=== PATIENT | male | born 1980 | race Caucasian/White ===

== ENCOUNTER 2017-06-11 18:23 | Inpatient (IN) | payer MEDICAID, OTHER ==
[2017-06-11] MEDS ORDERED: Sodium Chloride 0.9% 10 ML Syringe FLUSH PRN (18:43)
[2017-06-11] MEDS ORDERED: Pantoprazole 40 MG Vial IVPUSH ONE (18:51)
[2017-06-11] MEDS ORDERED: Ondansetron 4 MG/2 ML SDV IVPUSH ONE (18:51)
[2017-06-11] MEDS ORDERED: Sodium Chloride 0.9% 80 ML IV ONE (19:01)
[2017-06-11] MEDS ORDERED: Iopamidol 612 MG/ML 100 ML Bottle IV PRN (19:01)
[2017-06-11] MEDS: Sodium Chloride 0.9% 1,000 ML IV SCH (19:04)
[2017-06-11] MEDS: Sodium Chloride 0.9% 10 ML Syringe FLUSH PRN ×2 (19:06→19:25)
--- NOTE | 2017-06-11 19:27 | EDM.PDOC ---
ED HPI GENERAL MEDICAL PROBLEM - General Chief Complaint: Lower Extremity Injury/Pain Stated Complaint: FELL FROM ROOF Time Seen by Provider: 06/11/17 18:26 Source of Information: Reports: Patient, Family History Limitations: Reports: Intoxication - History of Present Illness INITIAL COMMENTS - FREE TEXT/NARRATIVE: Hudson is a 36 year old male under the influence of ETOH presenting to the ER after a fall from roof at 9 feet while shingling. He reports he landed on his feet then struck the deck with his left rib area. He denies LOC, the fall was not witnessed. He complains of left foot/ankle pain , unable to bear weight, left rib/LUQ pain. Onset: Today Onset Date: 06/11/17 Onset Time: 18:00 Duration: Minutes: Location: Reports: Chest, Abdomen, Lower Extremity, Left Quality: Reports: Ache, Throbbing Improves with: Reports: None Worsens with: Reports: Movement - Related Data Allergies Allergy/AdvReac Type Severity Reaction Status Date / Time amoxicillin Allergy Cannot Verified 06/11/17 18:34 Remember Home Meds: Home Meds NK [No Known Home Meds] 06/11/17 [History] Past Medical History - Past Health History Medical/Surgical History: Denies Medical/Surgical History Social & Family History - Tobacco Use Smoking Status *Q: Current Every Day Smoker Years of Tobacco use: 18 Packs/Tins Daily: 1 - Alcohol Use Days Per Week of Alcohol Use: 4 Number of Drinks Per Day: 10 Total Drinks Per Week: 40 - Recreational Drug Use Recreational Drug Use: No Review of Systems - Review of Systems Review Of Systems: See Below Constitutional: Denies: Chills, Fever, Weakness Eyes: Reports: No Symptoms Ears: Reports: No Symptoms Nose: Reports: No Symptoms Mouth/Throat: Reports: No Symptoms Respiratory: Denies: Shortness of Breath, Wheezing, Cough, Sputum Cardiovascular: Denies: Chest Pain, Edema, Lightheadedness, Palpitations GI/Abdominal: Reports: Abdominal Pain Genitourinary: Reports: No Symptoms Musculoskeletal: Reports: Joint Pain, Other (left rib, LUQ, left ankle/foot pain ) Skin: Reports: Bruising, Other (edema to left ankle, abrasion to left ribs. ) Neurological: Reports: Other (ETOH use, 3 beers). Denies: Headache, Syncope, Weakness Psychiatric: Reports: No Symptoms, Confusion ED EXAM, GENERAL - Physical Exam Exam: See Below Free Text/Narrative:: Hudson is an alert, oriented 36 year old male who fell 9 feet from a roof onto bilateral feet striking deck rail with left ribs. He denies SOB, difficulty breathing, LOC, headache, numbness, tingling or change in sensation to extremities. Exam Limited By: Intoxication General Appearance: Alert, Mild Distress Eye Exam: Bilateral Eye: EOMI, PERRL Ears: Normal External Exam, Normal Canal, Hearing Grossly Normal, Normal TMs Ear Exam: Bilateral Ear: Auricle Normal, Canal Normal, TM normal Nose: Normal Inspection, Normal Mucosa, No Blood Throat/Mouth: Normal Inspection, Normal Lips, Normal Teeth, Normal Oropharynx, Normal Voice, No Airway Compromise Head: Atraumatic, Normocephalic Neck: Normal Inspection, Supple, Non-Tender, Full Range of Motion. No: Lymphadenopathy (R), Lymphadenopathy (L), Tender Lateral, Tender Midline Respiratory/Chest: No Respiratory Distress, Lungs Clear, Normal Breath Sounds, No Accessory Muscle Use, Other (Tenderness to left rib cage. ) Cardiovascular: Normal Peripheral Pulses, Regular Rate, Rhythm, No Edema, No Murmur Peripheral Pulses: 2+: Radial (L), Radial (R), Dorsalis Pedis (L), Dorsalis Pedis (R) GI/Abdominal: Normal Bowel Sounds, Soft, No Distention, No Mass, Other ( Tenderness with guarding to LUQ) (Male) Exam: No Hernia, Normal Inspection, Other (No blood at the meatus). No: Scrotal Swelling Rectal (Males) Exam: Normal Exam, Normal Rectal Tone, Prostate Normal, Other ( No kapil blood) Back Exam: Normal Inspection, Full Range of Motion. No: CVA Tenderness (R), CVA Tenderness (L) Extremities: Other (Right leg has normal range of motion, is non-tender, no edema. Left ankle is edematous, no obvious dislocation, ecchymosis to lateral and medial sides, decreased range of motion. Full senstaion to all toes. ) Neurological: Alert, Oriented, CN II-XII Intact, Other (ETOH on board) Psychiatric: Other (angry at times, ETOH on board) Skin Exam: Warm, Dry, Ecchymosis, Other (Edema to left ankle. Abrasions to left rib area, LUQ. ) ED TRAUMA EXTREMITY PROCEDURES - Splinting Left Lower Extremity Splint Site: left lower extremity posterior splint Pre-Procedure NV Status: Normal Post-Procedure NV Status: Normal Splint Material: Fiberglass Splint Design: Posterior Applied & Form Fitted By: Provider Provider Post-Splint Application NV Check: NV Status Normal, Good Position Complications: No Course - Vital Signs Last Recorded V/S: Last Vital Signs Temp 35.9 C 06/11/17 18:45 Pulse 102 H 06/11/17 20:01 Resp 16 06/11/17 20:01 BP 135/87 06/11/17 20:01 Pulse Ox 96 06/11/17 20:01 - Orders/Labs/Meds Orders: Active Orders 24 hr Category Date Time Status Ankle Min 3V Lt [CR] Stat Exams 06/11/17 19:11 Taken Chest Abdomen Pelvis w Cont [CT] Stat Exams 06/11/17 18:45 Taken Foot Comp Min 3V Lt [CR] Stat Exams 06/11/17 19:11 Taken URINALYSIS W/MICROSCOPIC [UA W/MICROSCOPIC] [URIN] Stat Lab 06/11/17 18:48 Uncollected Sodium Chloride 0.9% [Normal Saline] 1,000 ml Med 06/11/17 19:00 Active IV ASDIRECTED Sodium Chloride 0.9% [Saline Flush] Med 06/11/17 18:43 Active 10 ml FLUSH ASDIRECTED PRN Sodium Chloride 0.9% [Saline Flush] Med 06/11/17 19:01 Active 10 ml FLUSH ONETIME PRN Saline Lock Insert [OM.PC] Routine Oth 06/11/17 18:43 Ordered Medication Orders Sodium Chloride (Normal Saline) 1,000 mls @ 150 mls/hr IV ASDIRECTED KIMBERLY Last Admin: 06/11/17 19:04 Dose: 150 mls/hr Sodium Chloride (Saline Flush) 10 ml FLUSH ASDIRECTED PRN PRN Reason: Keep Vein Open Sodium Chloride (Saline Flush) 10 ml FLUSH ONETIME PRN PRN Reason: PER RADIOLOGY PROTOCOL Last Admin: 06/11/17 19:25 Dose: 10 ml Admin: 06/11/17 19:06 Dose: 10 ml Labs: Laboratory Tests 06/11/17 06/11/17 06/11/17 Range/Units 19:00 19:00 19:00 WBC 9.0 (4.5-11.0) K/uL RBC 4.92 (4.30-5.90) M/uL Hgb 16.0 H (12.0-15.0) g/dL Hct 45.3 (40.0-54.0) % MCV 92 (80-98) fL MCH 33 H (27-31) pg MCHC 35 (32-36) % Plt Count 251 (150-400) K/uL Neut % (Auto) 45 (36-66) % Lymph % (Auto) 47 H (24-44) % [place] % (Auto) 7 H (2-6) % Eos % (Auto) 0 L (2-4) % Baso % (Auto) 1 (0-1) % PT 10.5 (9.5-12.0) sec INR 0.98 (0.80-1.20) APTT 21.9 L (27.0-36.0) sec Sodium 141 (140-148) mmol/L Potassium 3.0 L (3.6-5.2) mmol/L Chloride 103 (100-108) mmol/L Carbon Dioxide 26 (21-32) mmol/L Anion Gap 15.0 H (5.0-14.0) mmol/L BUN 14 (7-18) mg/dL Creatinine 1.0 (0.8-1.3) mg/dL Est Cr Clr Drug Dosing 115.41 mL/min Estimated GFR (MDRD) > 60 (>60) Glucose 111 H (74-106) mg/dL Calcium 7.2 L (8.5-10.1) mg/dL Total Bilirubin 0.4 (0.2-1.0) mg/dL AST 67 H (15-37) U/L ALT 68 (12-78) U/L Alkaline Phosphatase 103 (46-116) U/L Total Protein 8.0 (6.4-8.2) g/dL Albumin 3.9 (3.4-5.0) g/dL Globulin 4.1 H (2.3-3.5) g/dL Albumin/Globulin Ratio 1.0 L (1.2-2.2) Salicylates (2.0-20.0) mg/dL Ethyl Alcohol mg/dL 06/11/17 06/11/17 Range/Units 19:00 19:00 WBC (4.5-11.0) K/uL RBC (4.30-5.90) M/uL Hgb (12.0-15.0) g/dL Hct (40.0-54.0) % MCV (80-98) fL MCH (27-31) pg MCHC (32-36) % Plt Count (150-400) K/uL Neut % (Auto) (36-66) % Lymph % (Auto) (24-44) % [place] % (Auto) (2-6) % Eos % (Auto) (2-4) % Baso % (Auto) (0-1) % PT (9.5-12.0) sec INR (0.80-1.20) APTT (27.0-36.0) sec Sodium (140-148) mmol/L Potassium (3.6-5.2) mmol/L Chloride (100-108) mmol/L Carbon Dioxide (21-32) mmol/L Anion Gap (5.0-14.0) mmol/L BUN (7-18) mg/dL Creatinine (0.8-1.3) mg/dL Est Cr Clr Drug Dosing mL/min Estimated GFR (MDRD) (>60) Glucose (74-106) mg/dL Calcium (8.5-10.1) mg/dL Total Bilirubin (0.2-1.0) mg/dL AST (15-37) U/L ALT (12-78) U/L Alkaline Phosphatase (46-116) U/L Total Protein (6.4-8.2) g/dL Albumin (3.4-5.0) g/dL Globulin (2.3-3.5) g/dL Albumin/Globulin Ratio (1.2-2.2) Salicylates 4.6 (2.0-20.0) mg/dL Ethyl Alcohol 237 mg/dL Meds: Medications Generic Name Dose Route Start Last Admin Trade Name Freq PRN Reason Stop Dose Admin Sodium Chloride 1,000 mls @ 150 mls/hr 06/11/17 19:00 06/11/17 19:04 Normal Saline IV 150 mls/hr ASDIRECTED KIMBERLY Administration Sodium Chloride 10 ml 06/11/17 18:43 Saline Flush FLUSH ASDIRECTED PRN Keep Vein Open Sodium Chloride 10 ml 06/11/17 19:01 06/11/17 19:25 Saline Flush FLUSH 10 ml ONETIME PRN Administration PER RADIOLOGY PROTOCOL Discontinued Medications Generic Name Dose Route Start Last Admin Trade Name Doris PRN Reason Stop Dose Admin Hydromorphone HCl 0.5 mg 06/11/17 21:07 06/11/17 21:34 Dilaudid IVPUSH 06/11/17 21:08 0.5 mg ONETIME ONE Administration Sodium Chloride 80 mls @ 3 mls/sec 06/11/17 19:01 06/11/17 19:25 Normal Saline IV 06/11/17 19:02 3 mls/sec ONETIME ONE Administration Iopamidol 100 ml 06/11/17 19:01 06/11/17 19:25 Isovue-300 (61%) IV 06/11/17 19:02 100 ml . DIRECTED PRN Administration RADIOLOGY EXAM Ondansetron HCl 4 mg 06/11/17 18:51 06/11/17 19:04 Zofran IVPUSH 06/11/17 18:52 4 mg ONETIME ONE Administration Pantoprazole Sodium 40 mg 06/11/17 18:51 06/11/17 19:05 Protonix Iv IVPUSH 06/11/17 18:52 40 mg ONETIME ONE Administration - Radiology Interpretation CT Results Date: 06/11/17 (CT report of chest, abdomen, pelvis with contrast completed. Findings: all organs unremarkable. Noted acute nondisplaced fractures of the left anterior lateral 5th through 9th ribs. ) - Re-Assessments/Exams Free Text/Narrative Re-Assessment/Exam: 06/11/17 [address] Pooz present in room, case discussed and orders reviewed with Dr. Pozo. He is in agreement with plan. GCS 15 06/11/17 19:00 Patient refuses head, C-spine, thoracic and lumbar spine films. Clarification, education provided on significance of fall from 9 feet and landing on feet with risk for compression fractures or other internal injuries due to distracting left ankle injury and ETOH on board. Patient refused CT scans mentioned three times, Chastity RN witnessed refusals. Officer notified of patient refusal. GCS 15 06/11/17 19:45 Ankle/foot x-rays reviewed with patient. Wet read shows left talus 15% displaced fracture with calcaneous fracture. Patient reports his pain is tolerable when laying still, CMS intact. GCS 15 06/11/17 19:52 Dr. Geraldine Watts notified of left foot injuries/fractures. Advised to place posterior splint, follow up with podiatry for fracture care. 06/11/17 21:19 Dr. Benji Watts notified of patient status, admission orders obtained. Patient to be admitted as inpatient. Departure - Departure Time of Disposition: 21:00 Disposition: Admitted As Inpatient 66 Condition: Fair Clinical Impression: Left rib fracture, Calcaneal fracture, Fracture, talus closed, Elevated ETOH level - Discharge Information - My Orders Last 24 Hours: My Active Orders 06/11/17 18:43 Sodium Chloride 0.9% [Saline Flush] 10 ml FLUSH ASDIRECTED PRN Saline Lock Insert [OM.PC] Routine 06/11/17 18:45 Chest Abdomen Pelvis w Cont [CT] Stat 06/11/17 18:48 URINALYSIS W/MICROSCOPIC [UA W/MICROSCOPIC] [URIN] Stat 06/11/17 19:00 Sodium Chloride 0.9% [Normal Saline] 1,000 ml IV ASDIRECTED 06/11/17 19:01 Sodium Chloride 0.9% [Saline Flush] 10 ml FLUSH ONETIME PRN 06/11/17 19:11 Ankle Min 3V Lt [CR] Stat Foot Comp Min 3V Lt [CR] Stat - Assessment/Plan Last 24 Hours: My Active Orders 06/11/17 18:43 Sodium Chloride 0.9% [Saline Flush] 10 ml FLUSH ASDIRECTED PRN Saline Lock Insert [OM.PC] Routine 06/11/17 18:45 Chest Abdomen Pelvis w Cont [CT] Stat 06/11/17 18:48 URINALYSIS W/MICROSCOPIC [UA W/MICROSCOPIC] [URIN] Stat 06/11/17 19:00 Sodium Chloride 0.9% [Normal Saline] 1,000 ml IV ASDIRECTED 06/11/17 19:01 Sodium Chloride 0.9% [Saline Flush] 10 ml FLUSH ONETIME PRN 06/11/17 19:11 Ankle Min 3V Lt [CR] Stat Foot Comp Min 3V Lt [CR] Stat
[2017-06-11] MEDS ORDERED: HYDROmorphone 0.5 MG/0.5 ML Syringe IVPUSH ONE (21:07)
[2017-06-11] MEDS ORDERED: Naloxone 0.4 MG/ML SDV IVPUSH PRN (22:14)
[2017-06-11] MEDS ORDERED: HYDROmorphone/Normal Saline 15 MG/30 ML PCA IV PRN ×2 (22:14→22:36)
[2017-06-11] MEDS ORDERED: LORazepam 2 MG/ML MDV IVPUSH PRN (22:17)
[2017-06-11] MEDS ORDERED: Ondansetron 4 MG/2 ML SDV IVPUSH PRN (22:20)
[2017-06-11] MEDS ORDERED: Acetaminophen 325 MG Tab PO PRN (22:21)
[2017-06-11] MEDS ORDERED: Magnesium Hydroxide 400 MG/5 ML Susp 30 ML Cup PO PRN (22:22)
[2017-06-11] MEDS ORDERED: Bisacodyl 10 MG Supp RECTAL PRN (22:23)
[2017-06-11] MEDS ORDERED: Docusate Sodium 100 MG Cap PO PRN (22:23)
[2017-06-11] MEDS ORDERED: Aluminum Hydroxide/Magnesium Hydroxide/Simethicone Susp 30 ML Cup PO PRN (22:24)
[2017-06-11] MEDS ORDERED: Calcium Carbonate 500 MG Tab.Chew PO PRN (22:25)
[2017-06-11] MEDS ORDERED: Dextrose 5%-Lactated Ringers 1,000 ML IV SCH (22:30)
[2017-06-11] MEDS ORDERED: Naloxone 0.4 MG/ML SDV IV PRN (22:36)
[2017-06-11] MEDS ORDERED: fentaNYL 25 MCG/HR Transdermal Patch TRDERM SCH (23:00)
[2017-06-12] MEDS ORDERED: fentaNYL 12 MCG/HR Transdermal Patch TRDERM SCH (01:00)
[2017-06-12] MEDS: Sodium Chloride 0.9% 1,000 ML IV SCH (02:50)
[2017-06-12] MEDS ORDERED: fentaNYL 25 MCG/HR Transdermal Patch TRDERM SCH (09:00)
[2017-06-12] MEDS: Docusate Sodium 100 MG Cap PO SCH ×3 (09:49→21:05)
[2017-06-12] MEDS: Nicotine 21 MG/24 Hr Patch TRDERM SCH (09:50)
[2017-06-12] MEDS: VERIFY FENTANYL PATCH TOP SCH ×2 (09:51→21:04)
[2017-06-12] MEDS: Ibuprofen 600 MG Tab PO SCH ×3 (09:51→21:03)
[2017-06-12] MEDS: Dextrose 5%-Lactated Ringers 1,000 ML IV SCH (10:40)
[2017-06-12] MEDS ORDERED: LORazepam 1 MG Tab PO PRN (11:23)
[2017-06-12] MEDS: Pantoprazole 40 MG Tab.CR PO SCH (11:50)
[2017-06-12] MEDS ORDERED: [UNRECOGNIZED DRUG - REMARK] PO PRN (11:59)
[2017-06-12] MEDS ORDERED: Potassium Chloride 20 MEQ Tab.ER PO ONE ×2 (12:00→17:00)
[2017-06-12] MEDS ORDERED: MVI, Adult with Vitamin K 10 ML, Chromium/Copper/Mang/Selen/Zn 1 ML, Thiamine 200 MG in... IV ONE ×4 (12:00)
[2017-06-12] MEDS ORDERED: Pantoprazole 40 MG Vial IVPUSH SCH (18:00)
[2017-06-12] MEDS ORDERED: Potassium Chloride 20 MEQ Tab.ER PO SCH (21:00)
[2017-06-13] MEDS: Ibuprofen 600 MG Tab PO SCH ×4 (06:10→21:17)
[2017-06-13] MEDS: Dextrose 5%-Lactated Ringers 1,000 ML IV SCH (06:11)
[2017-06-13] MEDS: Pantoprazole 40 MG Tab.CR PO SCH (07:43)
[2017-06-13] MEDS: Acetaminophen/oxyCODONE 325-5 MG Tab PO PRN (08:51)
[2017-06-13] MEDS: Nicotine 21 MG/24 Hr Patch TRDERM SCH (08:53)
[2017-06-13] MEDS: Docusate Sodium 100 MG Cap PO SCH ×2 (08:53→20:27)
[2017-06-13] MEDS: VERIFY FENTANYL PATCH TOP SCH ×2 (08:55→20:27)
[2017-06-13] MEDS: Potassium Phosphates 25 MMOLE in Sodium Chloride 0.9% 500 ML IV SCH ×3 (10:06→18:22)
[2017-06-14] MEDS: Acetaminophen/oxyCODONE 325-5 MG Tab PO PRN ×2 (02:14→09:46)
[2017-06-14] MEDS: Ibuprofen 600 MG Tab PO SCH ×2 (07:25→10:57)
[2017-06-14] MEDS: Pantoprazole 40 MG Tab.CR PO SCH (07:26)
[2017-06-14 07:41] VITALS: BP 135/90
--- NOTE | 2017-06-14 08:59 | PN ---
DATE OF SERVICE: 06/13/2017 The patient has been afebrile with stable vital signs. He did show some signs of withdrawal yesterday and was given some beer and/or ra, as well as some Ativan. He has been fairly good overnight without additional treatment for that issue. Otherwise, his pulmonary toilet appears to be reasonably good, maintaining O2 sats in the 93% to 95% on room air. Chest x- ray shows some minor areas of atelectasis, but no pleural effusion or blood present and again no pneumothorax. He was able to get up walking yesterday with PT. We will work on that a little bit more today. His phosphate is quite low at 2.2. We will give him some K-Phos IV during the day and repeat a chest x-ray tomorrow. He apparently has a Dr. Celestin appointment set up, and we will try to confirm that date and time. He will likely be ready for discharge home tomorrow. Nic Watts MD /[id number]
--- NOTE | 2017-06-14 09:04 | CR ---
Ankle Min 3V Lt HISTORY: fall 9 feet FINDINGS: There is an oblique, comminuted fracture of the left calcaneus. Mild loss of Boehler's ang le can be seen. No other fracture or dislocation is identified. Ankle mortise and bony architecture are preserved. There is prominent soft tissue swelling laterally. IMPRESSION: Comminuted fracture left calcaneus. Prominent soft tissue swelling is seen in the ankle, greatest laterally.
--- NOTE | 2017-06-14 09:07 | CR ---
Foot Comp Min 3V Lt HISTORY: fall 9 feet FINDINGS: There is a comminuted fracture left calcaneus. Loss of Boehler's angle is seen. Fracture l ine can be seen extending to the subtalar joint. Fracture extends to the anterior lateral aspect of the calcaneus. Is also a fracture line extending to the posterior superior cortex. There appears to be mild displacement. No other fracture or dislocation can be identified. Soft tissue swelling is no pablo about the ankle. IMPRESSION: Comminuted, mildly displaced fractures left calcaneus.
--- NOTE | 2017-06-14 09:25 | CR ---
Chest 2V HISTORY: pleural contusion COMPARISON: None FINDINGS: Lungs appear clear and normally aerated. Cardiomediastinal silhouette is within normal limits. No va scular redistribution or pleural fluid can be seen. Bony structures and soft tissues are unremarkabl e. IMPRESSION: No acute chest abnormality identified.
[2017-06-14] MEDS: Docusate Sodium 100 MG Cap PO SCH (09:36)
[2017-06-14] MEDS: Nicotine 21 MG/24 Hr Patch TRDERM SCH (09:37)
--- NOTE | 2017-06-14 09:38 | DISCH ---
ADMISSION DIAGNOSES: A 9-foot fall from a roof; alcohol intoxification; left upper quadrant pain, rib area; left heel pain; and nicotine addiction. DISCHARGE DIAGNOSES: Fractured left calcaneus and left 4 rib fractures. HISTORY: Hudson is a 36-year-old male who, under the influence of alcohol, presented to the ER after a fall from the roof of at least 9 feet while shingling. He reported that he landed on his feet and then struck the deck with his left rib area. He had x-rays of left foot and left ankle; chest x-ray; chest, abdomen, and pelvic CT. Date of fall was 06/11/2017. On 06/12/2017, his injury to his rib cage was monitored by chest x-rays. Throughout his hospitalization, vital signs remained stable. His pain was controlled. Blood pressure diastolic was slightly elevated at 88 to 98. O2 sats by pulse oximetry was normal. He was able to be discharged to home on 06/14/2017. PHYSICAL EXAMINATION: GENERAL: Hudson Raines is a 36-year-old male. He is alert and orientated. VITAL SIGNS: Height 6 feet 1 inch. Weight is 218 pounds. TPR 98.2, 58, 16, and blood pressure 135/90. HEENT: Negative. NECK: Supple. HEART: Regular rate and rhythm. LUNGS: Clear and guarded with deep respirations. ABDOMEN: Negative. EXTREMITIES: He has his left foot in a temporary splint, has been walking with a walker and crutches. Will be seeing Dr. Celestin, business dean, when appointment is made. DISPOSITION: Discharged to home. CONDITION: Stable and improving. FOLLOWUP: With Nic Watts MD, at [facility] on 06/23/2017 at 9 a.m. Chest x-ray at 08:30 before clinic appointment. DISCHARGE MEDICATIONS: Home medications; 1. Tylenol 650 mg oral q.4 hours p.r.n. pain. 2. Percocet 5/325 mg 1 to 2 q.4 hours p.r.n. pain, #50. 3. Tums 500 to 1000 mg q.4 hours p.r.n., heartburn. 4. Colace 100 mg oral twice daily, #100. 5. Ibuprofen 600 mg q.6 hours scheduled. 6. Milk of magnesia 2 were sent home with the patient. 7. Continue nicotine Habitrol 21 mg transderm every 24 hours. 8. Protonix 40 mg q.24 hours. DIET AFTER DISCHARGE: Usual diet as tolerated. Drink 8 to 10 glasses of water a day. ACTIVITY: As tolerated. Driving, do not drive while on pain medication. Shower/bathing, may shower. DISCHARGE INSTRUCTIONS: Notify provider if any fever, increased pain, nausea, or vomiting. Use incentive spirometer 10 times every hour while awake.
--- NOTE | 2017-06-14 09:55 | CR ---
Chest 2V HISTORY: f/u f/u rib fracture COMPARISON: 06/12/2017 FINDINGS: Lungs appear clear and normally aerated. Cardiomediastinal silhouette is within normal limits. No va scular redistribution can be seen. A small amount of left pleural fluid has developed in the interva l. Left anterior rib fractures identified on CT study of 06/11/2027 are not apparent on these plain ra diographs. There is no pneumothorax. Bony structures and soft tissues are unremarkable. IMPRESSION: There is small amount of left pleural fluid has developed since yesterday's exam. No other acute denise st abnormality or significant interval change is identified.
[2017-06-14] MEDS: VERIFY FENTANYL PATCH TOP SCH (10:04)
--- NOTE | 2017-06-14 10:23 | CR ---
Chest 2V HISTORY: f/u rib fx FINDINGS: Compared with yesterday's exam, a small amount of left pleural fluid appears stable. No ac [place] infiltrate or contusion is seen. There is no pneumothorax. Cardiomediastinal silhouette is withi n normal limits. Pulmonary vasculature is not engorged. Remainder the exam is unchanged. IMPRESSION: Stable small amount of left pleural fluid. No other acute chest abnormality is identifie d.
--- NOTE | 2017-06-14 11:05 | PN ---
DATE OF SERVICE: 06/12/2017 The patient fell last night from a roof, around 9 feet, and has sustained lateral rib fractures on the left side of 5 through 9. These are nondisplaced and no associated pneumothorax. The chest x-ray today shows no significant infiltrates and no intercurrent bleeding or pneumothorax. He was fairly alcohol intoxicated at the time of admission. This has worn off, and he is presently having a little bit more discomfort. The plan will be to give him the fentanyl patch 25 mcg today and also to switch over the DIAGNOSTIC CARDIAC SONOGRAPHER to Percocet to make sure that is working. He has left calcaneal fracture, and we will set him up to see Dr. Celestin with Podiatry on Wednesday or Wednesday, and he will be seen by PT today to get fitted and instructed in the use of crutches and he will be nonweightbearing on his left leg for the time being. Otherwise, will begin the Percocet, along with ibuprofen and Colace and Protonix and give him a regular diet. He will get some MVI trace elements and add thiamine to the next 1 L of IV fluid. He may be ready for discharge home after proceeding with pulmonary toilet at that point. Nic Watts MD /[id number]
--- NOTE | 2017-06-14 11:18 | CT ---
Foot wo Cont Lt HISTORY: fracture of calcaneous TECHNIQUE: Axial spiral CT scan of the left foot was obtained along with sagittal, coronal, and 3-D reconstructions. FINDINGS: There is prominently comminuted fracturing of the calcaneus with multiple displaced fragme nts and loss of Boehler's angle. Multiple fracture lines extend to the subtalar joint. Fracture line extends to the superior lateral aspect of the calcaneus posteriorly. No other fracture or dislocati on is identified. IMPRESSION: Severely comminuted left calcaneus fracture with multiple displaced fragments and fractu res involving the subtalar joint. Total DLP: 226
--- NOTE | 2017-06-14 15:02 | CONS ---
DATE OF SERVICE: 06/14/2017 REFERRING PHYSICIAN: CONSULTING PHYSICIAN: Sukhwinder Celestin DPM This is in response to a consult from Dr. Kaden Watts, orthopedic surgeon regarding fracture of the left calcaneus. Thank you very much Dr. Watts for the referral of this patient to our service. SUBJECTIVE: The patient is a 36-year-old male who relates that he fell off his roof 3 days ago and hurt his left foot. He denies having any other injuries to his body at this time. Relates that the foot is painful but that pain is under control with the oral medication he is receiving. He denies having any other problems at this time. PAST MEDICAL HISTORY: The patient denies history of medical problems. REVIEW OF SYSTEMS: ENDOCRINE: The patient denies history of diabetes mellitus. NEUROLOGIC: The patient denies numbness or tingling in the feet. FAMILY HISTORY: The patient denies history of bleeding or clotting disorders. SOCIAL HISTORY: The patient relates he smokes one pack of cigarettes per day and has done so for 18 years and has occasional alcoholic beverage. PHYSICAL EXAMINATION: GENERAL: The patient was alert and oriented x3 and in no acute distress. VITAL SIGNS: Per EMR. VASCULAR: Revealed that the capillary refill time was less than 3 seconds in digits one through five, left foot. There was a +2 edema in the left foot and fracture blisters were present on the medial side of the left foot and ankle and were quite large but there was no purulence. No malodor. No signs of infection. MUSCULOSKELETAL: Reveals a painful left foot especially around the heel. NEUROLOGIC: Revealed sensation was grossly intact bilaterally. RADIOGRAPHIC EXAMINATION: CT scan of the left foot revealed intraarticular depressed calcaneal fracture of the left calcaneus. CT scan personally reviewed by me. ASSESSMENT: Closed calcaneal fracture left foot, intraarticular, displaced. PLAN: The patient was examined and evaluated. The patient was told that what we recommend is surgery in order to help avoid arthritis and arthritic pain in the left foot and also to get the foot and to get the heel out of varus, which it is in now, that can be seen on the CT scan. The benefits of this were explained to the patient. The patient related understanding. The patient was told, due to the fact that he has a great deal of swelling and fracture blisters, we do not recommend doing surgery for another week and a half. The patient was agreeable to this. The patient is scheduled tentatively for surgery for open reduction and internal fixation of displaced intraarticular calcaneal fracture of left foot in [place] on June 25, 2017. The patient will follow up with us in one week in the clinic next Wednesday just prior to surgery in order to reassess the skin. Sukhwinder Celestin DPM /[id number]
== END 2017-06-14 14:26 | disposition home or self-care (01) | DRG 563 ==
LOC: EDBD 18:23 → JP.ED 18:23 → JP.MS 20:36
PROVIDERS: ADMIT Surgery; ATTEND Surgery
DX: S92.062A Displaced intraarticular fracture of left calcaneus, initial encounter for closed fracture (principal); S22.42XA Multiple fractures of ribs, left side, initial encounter for closed fracture; S92.102A Unspecified fracture of left talus, initial encounter for closed fracture; W13.2XXA Fall from, out of or through roof, initial encounter; F10.129 Alcohol abuse with intoxication, unspecified; Y90.7 Blood alcohol level of 200-239 mg/100 ml; Z88.1 Allergy status to other antibiotic agents
CPT/HCPCS: 29515; 36415; 71020; 71020-26; 71260; 73610-26-LT; 73610-LT; 73630-26-LT; 73630-LT; 73700-26-LT; 73700-LT; 74177; 80048; 80053; 81001; 83735; 84100; 85025; 85610; 85730; 94667; 94762; 96361; 96374; 96375; 97162-GP; 97530-GP; 97535-GP; 99284; 99285-25; A9270-GY; C9113; G0480; J1170; J2405; J3411; J3490; J7030; J7040; J7042; J7050; Q9967

== ENCOUNTER 2022-07-04 21:06 | Emergency (ER) | payer SELFPAY ==
[2022-07-04] MEDS ORDERED: Sodium Chloride 0.9% 10 ML Syringe FLUSH PRN (21:15)
[2022-07-04] MEDS ORDERED: Diphtheria,Pertussis(Acell),Tetanus Vaccine 0.5 ML Syringe IM ONE (21:15)
[2022-07-04 21:37] LABS: ESTIMATED GFR 114 mL/min (>60)
[2022-07-04] MEDS: Sodium Chloride 0.9% 1,000 ML IV ONE (21:40)
[2022-07-04] MEDS: Acetaminophen 1,000 MG in Premix Bag 1 BAG IV ONE (21:49)
[2022-07-04] MEDS: Lidocaine 1% with EPINEPHrine 1:100,000 50 ML MDV INJECT ONE (21:53)
[2022-07-04 22:07] VITALS: BP 163/108; PULSE 123
[2022-07-04] MEDS: Potassium Chloride 20 MEQ Tab.ER PO ONE (23:14)
== END 2022-07-05 00:30 | disposition home or self-care (01) ==
LOC: JP.ED 21:06
DX: S02.2XXA Fracture of nasal bones, initial encounter for closed fracture (principal); S01.511A Laceration without foreign body of lip, initial encounter; S01.111A Laceration without foreign body of right eyelid and periocular area, initial encounter; F10.920 Alcohol use, unspecified with intoxication, uncomplicated; Z88.0 Allergy status to penicillin; Z20.822 Contact with and (suspected) exposure to COVID-19; Y90.8 Blood alcohol level of 240 mg/100 ml or more; W22.09XA Striking against other stationary object, initial encounter
CPT/HCPCS: 36415; 70450; 70486; 72125; 80048; 80307; 85025; 85610; 85730; 87635; 96365; 96368; 99284; A9270; J0131; J3490; J7030; U0002